=== PATIENT | male | born 1995 | race Caucasian/White ===

== ENCOUNTER 2019-12-09 15:05 | Emergency (ER) | payer OTHER ==
[~2019-12-09] VITALS: Ht 172.7 cm; Wt 68.0 kg
[2019-12-09 15:59] VITALS: Ht 172.7 cm; Wt 68.0 kg
[2019-12-09 18:26] VITALS: BP 133/83
== END 2019-12-09 18:26 | disposition home or self-care (01) ==
LOC: ED 15:05
DX: S23.3XXA Sprain of ligaments of thoracic spine, initial encounter (principal); X58.XXXA Exposure to other specified factors, initial encounter; Y93.89 Activity, other specified; Y92.89 Other specified places as the place of occurrence of the external cause; Y99.8 Other external cause status